=== PATIENT | male | born 1980 | race Hispanic/Latino ===

== ENCOUNTER 2017-01-06 10:02 | Emergency (ER) | payer MEDICAID ==
[2017-01-06] MEDS ORDERED: Sodium Chloride 0.9% 1,000 ML IV STA (11:18)
[2017-01-06] MEDS ORDERED: Sodium Chloride 0.9% 1,000 ML ONE (11:31)
[2017-01-06 11:36] LABS: BASO % 0.5 % (0.0-2.0); EOS # 0.2 K/uL (0.0-0.7); EOS % 3.7 % (0.0-4.0); HEMATOCRIT 43.5 % (35.0-51.0); LYMPH # 1.7 K/uL (1.0-4.3); LYMPH % 28.3 % (20.0-40.0); MEAN CELL VOLUME 92.4 fL (80.0-94.0); MEAN CORPUSCULAR HEMOGLOBIN 31.4 pg (27.0-31.0); MEAN PLATELET VOLUME 7.8 fL (7.2-11.7); MONO # 0.4 K/uL (0.0-0.8); MONO % 6.6 % (0.0-10.0); RED CELL DISTRIBUTION WIDTH 12.4 % (11.5-14.5); WHITE BLOOD COUNT 6.1 K/uL (4.8-10.8)
--- NOTE | 2017-01-06 11:44 | RAD ---
PROCEDURE: CHEST RADIOGRAPH, 1 VIEW HISTORY: CP COMPARISON: None available. FINDINGS: LUNGS: No acute airspace disease identified bilaterally. PLEURA: No pneumothorax or pleural fluid seen. CARDIOVASCULAR: Normal. OSSEOUS STRUCTURES: No significant abnormalities. VISUALIZED UPPER ABDOMEN: Normal. OTHER FINDINGS: None. IMPRESSION: No interval acute cardiopulmonary disease appreciated.
[2017-01-06 11:49] LABS: ALKALINE PHOSPHATASE 64 U/L (38-126); ALT/SGPT 92 U/L (21-72); AST/SGOT 32 U/L (17-59); BILIRUBIN,TOTAL 0.5 mg/dL (0.2-1.3); BLOOD UREA NITROGEN 22 mg/dL (9-20); CALCIUM 9.2 mg/dl (8.6-10.4); CARBON DIOXIDE 28 mmol/L (22-30); CHLORIDE 99 mmol/L (98-107); GFR AFRICAN-AMERICAN > 60; GLUCOSE,RANDOM 94 mg/dL (75-110); POTASSIUM 4.5 mmol/L (3.6-5.2); SODIUM 137 mmol/L (132-148); TOTAL PROTEIN 8.9 g/dL (6.3-8.3)
[2017-01-06 12:03] LABS: ALB/GLOB RATIO 1.1 (1.0-2.1)
[2017-01-06 12:57] LABS: URINE BILIRUBIN NEGATIVE (NEGATIVE); URINE BLOOD NEGATIVE (NEGATIVE); URINE COLOR Yellow (YELLOW); URINE GLUCOSE (UA) NORMAL (Normal); URINE KETONE NEGATIVE (NEGATIVE); URINE LEUKOCYTE ESTERASE NEG Leu/uL (Negative); URINE PROTEIN NEGATIVE (NEGATIVE); URINE UROBILINOGEN NORMAL mg/dL (0.2-1.0); WBC URINE 1 /hpf (0-5)
[2017-01-06] MEDS ORDERED: Iodixanol 320 mg/ml 150 ml Bottle IV ONE (13:43)
--- NOTE | 2017-01-06 15:57 | CT ---
PROCEDURE: CT Angiography Chest, Abdomen and Pelvis with and without intravenous contrast HISTORY: CP radiating to neck COMPARISON: None. TECHNIQUE: Contiguous axial images of the chest, abdomen and pelvis were obtained in the phase of aortic enhancement. A noncontrast enhanced CT of the chest was also obtained to evaluate for possible intramural thrombus. Coronal and sagittal reformats were generated. IV dose administered: 100 mL Visipaque 320 Radiation dose: Total exam DLP = 1858.93 mGy-cm. This CT exam was performed using one or more of the following dose reduction techniques: Automated exposure control, adjustment of the mA and/or kV according to patient size, and/or use of iterative reconstruction technique. FINDINGS: CT ANGIOGRAPHY OF THE CHEST WITH & WITHOUT CONTRAST: AORTA (CHEST AND ABDOMEN): The thoracic and abdominal aorta are unremarkable, without aneurysm, dissection or rupture. No intramural thrombus identified in the thoracic aorta on the non-contrast ct of the chest. The celiac axis, superior mesenteric artery, inferior mesenteric artery and the renal arteries are widely patent. The pelvic arteries are unremarkable. LUNGS: Clear. No nodule, mass or consolidation. Minimal dependent subsegmental atelectasis in both lower lobes. MEDIASTINUM: Unremarkable. Normal caliber aorta and pulmonary arterial trunk. No aortic dissection. Normal size heart. LYMPH NODES: Unremarkable. PLEURA: Unremarkable. No pneumothorax. No pleural fluid. BONES: Unremarkable. OTHER FINDINGS: None. CT ANGIOGRAPHY OF THE ABDOMEN AND PELVIS WITH CONTRAST: LIVER: Unremarkable. No gross lesion or ductal dilatation. GALLBLADDER AND BILE DUCTS: Unremarkable. PANCREAS: Unremarkable. No gross lesion or ductal dilatation. SPLEEN: Unremarkable. ADRENALS: Unremarkable. No mass. KIDNEYS AND URETERS: Unremarkable. No hydronephrosis. No solid mass. VASCULATURE: Unremarkable. No aortic aneurysm. STOMACH AND BOWEL: Unremarkable. No obstruction. No gross mural thickening. APPENDIX: Normal appendix. PERITONEUM: Unremarkable. No free fluid. No free air. LYMPH NODES: Unremarkable. No enlarged lymph nodes. Bones No acute fracture. OTHER FINDINGS: None. IMPRESSION: No evidence of thoracic or abdominal aortic dissection. No evidence of aortic aneurysm. Unremarkable examination.
[2017-01-06 16:09] VITALS: RESP 18
--- NOTE | 2017-01-06 16:16 | CT ---
PROCEDURE: CT Angiography of the neck with contrast HISTORY: chest pain, radiating to jeramie left neck COMPARISON: None available. TECHNIQUE: Contiguous axial images of the neck were obtained from the level of the skull-base to the superior mediastinum in the arteriographic phase of enhancement. Coronal and sagittal reformats or also generated. IV contrast dose: Visipaque 320, 50 cc. Radiation Dose - DLP: mGy-cm This CT exam was performed using one or more of the following dose reduction techniques: Automated exposure control, adjustment of the mA and/or kV according to patient size, and/or use of iterative reconstruction technique. FINDINGS: The bilateral common, internal and external carotid arteries appear patent. Overall contrast-enhancement somewhat limited due to the performance of this examination in concert with a dissection protocol contrast chest CT and in spite of re-bolusing additional contrast material for this exam. Using the sections containing the visualized common carotid arteries from that study and combining the information with the current neck CT angiogram, no definite dissection is suggested throughout the bilateral common carotid arteries. No significant stenosis appreciated throughout the visualized internal or external carotid arteries in the neck and though there is no likely dissection through either either, evaluation for dissection is limited. Signal evaluation is made regarding the bilateral vertebral arteries which are relatively weekly enhanced. Both appear patent through the junction with the basilar artery. No definite aneurysm or arteriovascular malformation is identified. No definite suspicious bony findings. OTHER FINDINGS: None. IMPRESSION: The visualized bilateral common and internal carotid arteries appear patent as well as the vertebral arteries bilaterally though contrast-enhancement appears at the mid venous phase of enhancement rather than peak arterial enhancement for reasons discussed above. No definite dissection is appreciated throughout the bilateral common carotid arteries and is not felt to be present in the remaining major arteries of the neck though contrast-enhancement limits definitive evaluation. Please see discussion above.
--- NOTE | 2017-01-06 16:29 | C.PDOC ---
History Of Present Illness 36 y/o male presents to ED for evaluation of sharp chest pain that started at 4: 00 this morning. Notes that pain radiates to left side of neck. Pt also reports nausea and 1 episode of vomiting today. Denies shortness of breath, palpitation , diaphoresis, fever, headache, dizziness, or other complaints. Time Seen by Provider: 01/06/17 10:19 Chief Complaint (Nursing): Chest Pain History Per: Patient History/Exam Limitations: no limitations Onset/Duration Of Symptoms: Hrs Current Symptoms Are (Timing): Still Present Quality: "Pain" Associated Symptoms: Nausea. denies: Dyspnea, Diaphoresis, Syncope Modifying Factors: None Exacerbating Factors: None Alleviating Factors: None Recent travel outside of the [place]: No Additional History Per: Patient Past Medical History Reviewed: Historical Data, Nursing Documentation, Vital Signs Vital Signs: Last Vital Signs Temp 97.6 F 01/06/17 16:35 Pulse 65 01/06/17 16:35 Resp 18 01/06/17 16:35 BP 118/88 01/06/17 16:35 Pulse Ox 97 01/06/17 17:37 Family History: States: Unknown Family Hx - Social History Hx Alcohol Use: No Hx Substance Use: Yes - Immunization History Hx Tetanus Toxoid Vaccination: No Hx Influenza Vaccination: No Hx Pneumococcal Vaccination: No Review Of Systems Except As Marked, All Systems Reviewed And Found Negative. Constitutional: Negative for: Fever, Chills, Sweats Cardiovascular: Positive for: Chest Pain. Negative for: Palpitations, Edema, Light Headedness Respiratory: Negative for: Cough, Shortness of Breath Gastrointestinal: Positive for: Nausea, Vomiting. Negative for: Abdominal Pain , Diarrhea Musculoskeletal: Positive for: Neck Pain Physical Exam - Physical Exam Appears: Non-toxic, No Acute Distress Skin: Normal Color, Warm, Dry Head: Atraumatic, Normacephalic Eye(s): bilateral: Normal Inspection Oral Mucosa: Moist Neck: Normal ROM, Supple Chest: Symmetrical, No Tenderness Cardiovascular: Rhythm Regular, No Murmur Respiratory: Normal Breath Sounds, No Rales, No Rhonchi, No Wheezing Gastrointestinal/Abdominal: Soft, No Tenderness Extremity: Normal ROM, No Pedal Edema Neurological/Psych: Oriented x3, Normal Speech ED Course And Treatment - Laboratory Results Result Diagrams: 01/06/17 11:30 01/06/17 11:30 ECG: Interpreted By Me, Viewed By Me ECG Rhythm: Sinus Rhythm ECG Interpretation: No Acute Changes Rate From EC O2 Sat by Pulse Oximetry: 97 Pulse Ox Interpretation: Normal - CT Scan/US Dissection study Other Rad Studies (CT/US): Read By Radiologist, Radiology Report Reviewed CT/US Interpretation: PROCEDURE: CT Angiography Chest, Abdomen and Pelvis with and without intravenous contrast. HISTORY: CP radiating to neck. COMPARISON: None. TECHNIQUE: Contiguous axial images of the chest, abdomen and pelvis were obtained in the phase of aortic enhancement. A noncontrast enhanced CT of the chest was also obtained to evaluate for possible intramural thrombus. Coronal and sagittal reformats were generated. IV dose administered: 100 mL Visipaque 320. Radiation dose: Total exam DLP = 1858.93 mGy-cm. This CT exam was performed using one or more of the following dose reduction techniques: Automated exposure control, adjustment of the mA and/or kV according to patient size, and/or use of iterative reconstruction technique. FINDINGS: CT ANGIOGRAPHY OF THE CHEST WITH & WITHOUT CONTRAST: AORTA (CHEST AND ABDOMEN): The thoracic and abdominal aorta are unremarkable, without aneurysm, dissection or rupture. No intramural thrombus identified in the thoracic aorta on the non- contrast ct of the chest. The celiac axis, superior mesenteric artery, inferior mesenteric artery and the renal arteries are widely patent. The pelvic arteries are unremarkable. LUNGS: Clear. No nodule, mass or consolidation. Minimal dependent subsegmental atelectasis in both lower lobes. MEDIASTINUM: Unremarkable. Normal caliber aorta and pulmonary arterial trunk. No aortic dissection. Normal size heart. LYMPH NODES: Unremarkable. PLEURA: Unremarkable. No pneumothorax. No pleural fluid. BONES: Unremarkable. OTHER FINDINGS: None. CT ANGIOGRAPHY OF THE ABDOMEN AND PELVIS WITH CONTRAST: LIVER : Unremarkable. No gross lesion or ductal dilatation. GALLBLADDER AND BILE DUCTS: Unremarkable. PANCREAS: Unremarkable. No gross lesion or ductal dilatation. SPLEEN: Unremarkable. ADRENALS: Unremarkable. No mass. KIDNEYS AND URETERS: Unremarkable. No hydronephrosis. No solid mass. VASCULATURE: Unremarkable. No aortic aneurysm. STOMACH AND BOWEL: Unremarkable. No obstruction. No gross mural thickening. APPENDIX: Normal appendix. PERITONEUM : Unremarkable. No free fluid. No free air. LYMPH NODES: Unremarkable. No enlarged lymph nodes. Bones. No acute fracture. OTHER FINDINGS: None. IMPRESSION: No evidence of thoracic or abdominal aortic dissection. No evidence of aortic aneurysm. Unremarkable examination. Angiography neck Other Rad Studies (CT/US): Read By Radiologist, Radiology Report Reviewed CT/US Interpretation: PROCEDURE: CT Angiography of the neck with contrast. HISTORY: chest pain, radiating to jeramie left neck. COMPARISON: None available. TECHNIQUE: Contiguous axial images of the neck were obtained from the level of the skull-base to the superior mediastinum in the arteriographic phase of enhancement. Coronal and sagittal reformats or also generated. IV contrast dose : Visipaque 320, 50 cc. Radiation Dose - DLP: mGy-cm. This CT exam was performed using one or more of the following dose reduction techniques: Automated exposure control, adjustment of the mA and/or kV according to patient size, and/or use of iterative reconstruction technique. FINDINGS: The bilateral common, internal and external carotid arteries appear patent. Overall contrast-enhancement somewhat limited due to the performance of this examination in concert with a dissection protocol contrast chest CT and in spite of re-bolusing additional contrast material for this exam. Using the sections containing the visualized common carotid arteries from that study and combining the information with the current neck CT angiogram, no definite dissection is suggested throughout the bilateral common carotid arteries. No significant stenosis appreciated throughout the visualized internal or external carotid arteries in the neck and though there is no likely dissection through either either, evaluation for dissection is limited. Signal evaluation is made regarding the bilateral vertebral arteries which are relatively weekly enhanced. Both appear patent through the junction with the basilar artery. No definite aneurysm or arteriovascular malformation is identified. No definite suspicious bony findings. OTHER FINDINGS: None. IMPRESSION: The visualized bilateral common and internal carotid arteries appear patent as well as the vertebral arteries bilaterally though contrast-enhancement appears at the mid venous phase of enhancement rather than peak arterial enhancement for reasons discussed above. No definite dissection is appreciated throughout the bilateral common carotid arteries and is not felt to be present in the remaining major arteries of the neck though contrast-enhancement limits definitive evaluation. Please see discussion above. Progress Note: Blood work, UA, EKG, CXR ordered and reviewed. D-Dimer found to be elevated. Angiography neck, chest, and dissection study ordered. Pt was given IV fluids, and Toradol. On re-evaluation, patient is resting comfortably, no acute distress. Notes feeling better. Patient is being discharged home, and is instructed to follow up with PMD in 1-2 days for further evaluation. Disposition - Disposition Disposition: HOME/ ROUTINE Disposition Time: 16:27 Condition: STABLE Additional Instructions: Follow up with PMD within 1-2 days. Return to ED if feel worse. 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 - Scribe Statement The provider has reviewed the documentation as recorded by the Scribe Xin Cavazos All medical record entries made by the Mela were at my direction and personally dictated by me. I have reviewed the chart and agree that the record accurately reflects my personal performance of the history, physical exam, medical decision making, and the department course for this patient. I have also personally directed, reviewed, and agree with the discharge instructions and disposition.
[2017-01-06 16:36] VITALS: BP 118/88; PULSE 65; TEMP 97.6
[2017-01-06 17:04] VITALS: O2SAT 97
--- NOTE | 2017-01-09 18:04 | CARD ---
APPROVED REPORT EKG Measurement Heart [id number] DC [id number] <Conclusion> Normal sinus rhythm Normal ECG
== END 2017-01-06 16:37 | disposition home or self-care (01) ==
LOC: C.ER 10:02
DX: R07.89 Other chest pain (principal)
CPT/HCPCS: 70498; 71010; 71275; 74175; 80053; 80324; 80345; 80346; 80349; 80353; 80358; 80361; 81001; 82550; 82553; 83992; 84484; 85025; 85378; 85610; 85730; 96361; 96374; 99285; J1885; J7040; Q9967

== ENCOUNTER 2017-10-04 20:04 | Inpatient (IN) | payer MEDICAID ==
--- NOTE | 2017-10-04 21:18 | C.PDOC ---
History Of Present Illness 37 year old male presents to the emergency department as a pre-screen for detox. Patient is requesting detox from heroin, alcohol, and xanax. He denies any medical complaints at this time. Time Seen by Provider: 10/04/17 21:10 Chief Complaint (Nursing): Substance Abuse History Per: Patient History/Exam Limitations: no limitations Onset/Duration Of Symptoms: Hrs Current Symptoms Are (Timing): Still Present Suicide/Self Injury Attempted (Context): None Modifying Factor(s): Alcohol, Other (heroin, xanax) Associated Symptoms: denies: Suicidal Thoughts, Suicidal Plan Past Medical History Reviewed: Historical Data, Nursing Documentation, Vital Signs Vital Signs: Last Vital Signs Temp 98.5 F 10/04/17 20:17 Pulse 84 10/04/17 20:17 Resp 20 10/04/17 20:17 BP 115/72 10/04/17 20:17 Pulse Ox 100 10/04/17 21:50 - Medical History PMH: No Chronic Diseases Surgical History: No Surg Hx Family History: States: No Known Family Hx - Social History Hx Alcohol Use: Yes Hx Substance Use: Yes - Immunization History Hx Tetanus Toxoid Vaccination: No Hx Influenza Vaccination: No Hx Pneumococcal Vaccination: No Review Of Systems Except As Marked, All Systems Reviewed And Found Negative. Constitutional: Negative for: Fever Psych: Negative for: Suicidal ideation Physical Exam - Physical Exam Additional Physical Exam Comments: Constitutional: No acute distress. Head: Normocephalic. Atraumatic. Eyes: PERRL. ENT: Moist mucous membranes. Neck: Supple. Cardiovascular: Regular rate. Radial pulse 2+ bilaterally. Chest: No tenderness. Respiratory: Clear to auscultation bilaterally. GI: Soft. Nontender. Nondistended. Back: No CVA tenderness. Musculoskeletal: No tenderness or swelling of extremities. Skin: No rash. Neurologic: Alert, no focal deficit. ED Course And Treatment - Laboratory Results Result Diagrams: 10/04/17 21:14 10/04/17 21:14 O2 Sat by Pulse Oximetry: 100 (RA) Pulse Ox Interpretation: Normal Medical Decision Making Medical Decision Making: Plan: Alcohol Serum CMP Drug Screen CBC Urinalysis Disposition - Disposition Disposition: HOSPITALIZED Disposition Time: 21:50 Condition: STABLE Forms: [facility] (Swedish) - Clinical Impression Clinical Impression: Opioid use disorder, severe, dependence, Alcohol use disorder, severe, dependence, Severe benzodiazepine use disorder - Scribe Statement The provider has reviewed the documentation as recorded by the Scribe (Thai Pham) Provider Attestation: All medical record entries made by the Scribe were at my direction and personally dictated by me. I have reviewed the chart and agree that the record accurately reflects my personal performance of the history, physical exam, medical decision making, and the department course for this patient. I have also personally directed, reviewed, and agree with the discharge instructions and disposition.
[2017-10-04 21:20] LABS: BASO % 0.4 % (0.0-2.0); EOS # 0.1 K/uL (0.0-0.7); EOS % 1.8 % (0.0-4.0); HEMOGLOBIN 12.7 g/dL (12.0-18.0); LYMPH # 0.7 K/uL (1.0-4.3); LYMPH % 10.4 % (20.0-40.0); MEAN CELL VOLUME 89.3 fL (80.0-94.0); MEAN CORPUSCULAR HEMOGLOBIN 30.9 pg (27.0-31.0); MEAN CORPUSCULAR HGB CONC 34.6 g/dL (33.0-37.0); MEAN PLATELET VOLUME 7.6 fL (7.2-11.7); MONO # 0.4 K/uL (0.0-0.8); MONO % 5.6 % (0.0-10.0); NEUT # 5.3 K/uL (1.8-7.0); NEUT % 81.8 % (50.0-75.0); NRBC % 0.1 % (0.0-2.0); RBC 4.11 Mil/uL (4.40-5.90); RED CELL DISTRIBUTION WIDTH 12.6 % (11.5-14.5); WHITE BLOOD COUNT 6.5 K/uL (4.8-10.8)
[2017-10-04 21:26] LABS: URINE BILIRUBIN NEGATIVE (NEGATIVE); URINE BLOOD NEGATIVE (NEGATIVE); URINE CALCIUM OXALATE CRYSTALS OCC /hpf (<OCC); URINE CLARITY Hazy (Clear); URINE GLUCOSE (UA) NORMAL (Normal); URINE LEUKOCYTE ESTERASE NEG Leu/uL (Negative); URINE PROTEIN NEGATIVE (NEGATIVE)
[2017-10-04 21:28] LABS: URINE COLOR YELLOW (YELLOW)
[2017-10-04 21:35] LABS: ALB/GLOB RATIO 1.4 (1.0-2.1); ALBUMIN 4.3 g/dL (3.5-5.0); ALT/SGPT 31 U/L (21-72); AST/SGOT 26 U/L (17-59); BLOOD UREA NITROGEN 19 mg/dL (9-20); CALCIUM 9.3 mg/dl (8.6-10.4); GFR NON-AFRICAN AMERICAN > 60
[2017-10-04 21:44] LABS: BARBITURATES, UR NEGATIVE (NEGATIVE); PHENCYCLIDINE, UR NEGATIVE (NEGATIVE)
[2017-10-04 21:46] LABS: BENZODIAZEPINES, UR POSITIVE (NEGATIVE); OPIATES, UR POSITIVE (NEGATIVE)
--- NOTE | 2017-10-04 22:42 | PCM.BM ---
<Danae Jordan - Last Filed: 10/04/17 22:41> Treatment Plan Problems - Problems identified on initial assessmt Potential for benzo withdrawal Date Initiated: 10/04/17 Time Initiated: 22:41 Assessment reference: NA Status: Active Potential for opiate withdrawal Date Initiated: 10/04/17 Time Initiated: 22:42 Assessment reference: NA Status: Active Treatment assets and liabiliti Patient Assests: ADL independent, negotiates basic needs, cognitively intact Patient Liabilities: substance abuse - Milieu Protocol Maintain good personal hygiene: daily Encourage regular showers, daily Remind patient to perform daily oral care, daily Assist patient to perform ADL's Conduct patient checks and document Observation sheet: Q15 minutes Maintain personal safety: every shift Educate patient to report safety concerns to staff, every shift Monitor environment for contraband/sharps Medication safety: Monitor for expected outcome, potential side effects: every shift, Assess barriers to learning: every shift, Assess readiness for medication education: every shift <Jose Ramon Lamar - Last Filed: 10/05/17 12:58> - Diagnosis (1) Alcohol use disorder, severe, dependence Status: Acute Interventions: 10/05/17 12:56 * Assess 7x/week regarding severity of withdrawal * Educate regarding risks, benefits, side effects and alternatives of medications * Use Motivational Interviewing for abstinence * Use CBT for relapse prevention * Medication management for withdrawal symptoms * Encourage medication assisted treatment * (2) Opioid use disorder, severe, dependence Status: Acute Interventions: 10/05/17 12:56 * Assess 7x/week regarding severity of withdrawal * Educate regarding risks, benefits, side effects and alternatives of medications * Use Motivational Interviewing for abstinence * Use CBT for relapse prevention * Medication management for withdrawal symptoms * Encourage medication assisted treatment * (3) Severe benzodiazepine use disorder Status: Acute Interventions: 10/05/17 12:56 * Assess 7x/week regarding severity of withdrawal * Educate regarding risks, benefits, side effects and alternatives of medications * Use Motivational Interviewing for abstinence * Use CBT for relapse prevention * Medication management for withdrawal symptoms * Encourage medication assisted treatment *
[2017-10-05] MEDS ORDERED: Aluminum Hydroxide/Magnesium Hydroxide Susp (30 mL) PO PRN (06:23)
[2017-10-05] MEDS: Multiple Vitamins Tab PO SCH (09:21)
--- NOTE | 2017-10-05 12:41 | PCM.PSYCH ---
Initial Psychiatric Evaluation - Initial Psychiatric Evaluation Type of Admission: Voluntary Legal Status: Capacity Chief Complaint (in patient's own words): "Withdrawing" History of Present Illness and Precipitating Events: Pt is a 37 year old male who is single and has 2 kids. 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 He is presenting for opioid detoxification. He snorts heroin (15-20 bags/day) for 7 years. Pt relapsed 6 months ago. This is not his first detoxification. Pt also consumes 4 sticks/day (8mg) of Xanax for the past 10 years. He may have had seizures, he is not certain. Pt drinks alcohol 4-5 shots of vodka. He denies cocaine, marijuana, or any other drugs. He has significant withdrawal sxs and treatment started already Psych Hx: Unremarkable Family Psych Hx: Unremarkable Med Hx: Denies hepatitis C, unremarkable Current Medications: Active Medications Generic Name Dose Route Start Last Admin Trade Name Freq PRN Reason Stop Dose Admin Al Hydrox/Mg Hydrox/Simethicone 30 ml 10/05/17 06:23 Maalox 30 Ml PO TID PRN Indigestion / Heartburn Chlordiazepoxide 25 mg 10/05/17 08:43 Librium PO Q4H PRN Alcohol Withdrawal Chlordiazepoxide 25 mg 10/05/17 10:00 10/05/17 09:59 Librium PO 10/09/17 09:59 25 mg Q6 STELLA Administration Taper Clonidine HCl 0.1 mg 10/05/17 06:23 Catapres PO Q8 PRN COWS Score More or Equal to 5 Dicyclomine HCl 20 mg 10/05/17 06:25 Bentyl PO Q6 PRN Abdominal Cramps Folic Acid 1 mg 10/05/17 10:00 10/05/17 09:21 Folic Acid PO 1 mg DAILY STELLA Administration Gabapentin 400 mg 10/05/17 10:00 10/05/17 09:21 Neurontin PO 400 mg TID STELLA Administration Hydroxyzine HCl 25 mg 10/04/17 23:44 10/04/17 23:55 Atarax PO 25 mg Q6H PRN Administration Anxiety Ibuprofen 400 mg 10/05/17 06:24 Motrin Tab PO Q6 PRN Pain, moderate (4-7) Loperamide HCl 2 mg 08/30/18 06:23 Imodium PO Q8 PRN Diarrhea Methadone HCl 25 mg 10/05/17 10:00 10/05/17 09:22 Methadone PO 10/11/17 09:59 25 mg Q24H STELLA Administration Taper Multivitamins 1 tab 10/05/17 10:00 10/05/17 09:21 Hexavitamin PO 1 tab DAILY STELLA Administration Ondansetron HCl 4 mg 10/05/17 06:23 Zofran Tab PO Q8 PRN Nausea/Vomiting Thiamine HCl 100 mg 10/05/17 10:00 10/05/17 09:20 Vitamin B1 Tab PO 100 mg DAILY STELLA Administration Trazodone HCl 100 mg 10/05/17 22:00 Desyrel PO HS PRN Insomnia Past Psychiatric History - Past Psychiatric History Previous Treatment History: None Pertinent Medical Hx (Current Medical&Sleep Prob, Allergies): Allergies Allergy/AdvReac Type Severity Reaction Status Date / Time No Known Allergies Allergy Verified 01/06/17 10:15 No Known Home Med 10/04/17 Review of Systems - Neurological Neurological: Tremor - Psychiatric Psychiatric: Abnormal Sleep Pattern, Anhedonia, Anxiety, Change in Appetite, Difficulty Concentrating, Irritability. absent: Hallucinations, Homicidal Ideation, Paranoia, Suicidal Ideation Mental Status Examination - Personal Presentation Personal Presentation: Looks stated age - Affect Affect: Constricted - Motor Activity Motor Activity: Calm - Reliability in Providing Information Reliability in Providing Information: Good - Speech Speech: Organized - Mood Mood: Anxious - Formal Thought Process Formal Thought Process: No Impairment - Cognitive Functions Orientation: Person, Place, Situation, Time Sensorium: Alert Attention/Concentration: Attentive Estimate of Intelligence: Average Judgement: Intact, as evidence by: Insight regarding need for hospitalization Memory: Recent intact, as evidence by: Ability to recall events of the day, Remote intact, as evidenced by: Abilit to recall sig. life events - Risk Risk: Seizure, Withdrawal, Diminished functioning - Strength & Assets Inventory Strength & Assets Inventory: Cooperative - Limitations Limitations: Other DSM 5 DX - DSM 5 DSM 5 Diagnosis: Opioid withdrawal Opioid use disorder, severe Sedative, hypnotic, and anxiolytic use disorder, severe Sedative, hypnotic, and anxiolytic withdrawal Alcohol use d/o - severe - Recommended/Plan of Treatment Treatment Recommendations and Plan of Treatment: Taper with MTD for opioids, Librium for benzos and alcohol Gabapentin for augmentation As needed medications All risks, benefits and alternatives of the meds discussed, and the pt agreed and understood. Attend groups and activities Supportive therapy and psychoeducation [place] for abstinence CBT for relapse prevention Encourage MAT Refer to rehab or IOP, and self-help groups Smoking cessation with [place] Nicotine patch if needed 33 min Projected ELOS: 4-5 days - Smoking Cessation Smoking Cessation Initiated: Yes
[2017-10-06] MEDS: Multiple Vitamins Tab PO SCH (10:33)
--- NOTE | 2017-10-06 11:50 | PCM.PYCHPN ---
Psychiatric Progress Note - Psychiatric Progress Note Patient seen today, length of contact: 16 min Patient Chief Complaint: "Still not well yet" Problems Identified/Issues Discussed: The pt is seen, chart reviewed, case discussed with staff. The pt is compliant with medications and reports no side-effects. Symptoms are improving but needs more time to stabilize. Pt attends groups and activities. Support given, psycho-education provided. After care discussed. Medication Change: Yes (detox changes daily) Medical Record Reviewed: Yes Mental Status Examination - Cognitive Function Orientation: Person, Place, Situation, Time Memory: Intact Attention: WNL Concentration: Poor Association: WNL Fund of Knowledge: WNL - Mood Mood: Anxious - Affect Affect: Constricted - Speech Speech: Appropriate - Formal Thought Process Formal Thought Process: No Impairment - Suicidal Ideation Suicidal Ideation: No - Homicidal Ideation Homicidal Ideation: No Goal/Treatment Plan - Goal/Treatment Plan Need for Continued Stay: Discharge may exacerbated symptoms, Severe functional impairment Progress Toward Problem(s) and Goals/Treatment Plan: Taper with MTD for opioids, Librium for benzos and alcohol Gabapentin for augmentation Seroquel for insomnia As needed medications All risks, benefits and alternatives of the meds discussed, and the pt agreed and understood. Attend groups and activities Supportive therapy and psychoeducation [place] for abstinence CBT for relapse prevention Encourage MAT Refer to rehab or IOP, and self-help groups Smoking cessation with [place] Nicotine patch if needed Estimated Date of D/C: 10/10/17
[2017-10-07] MEDS: Multiple Vitamins Tab PO SCH (10:08)
--- NOTE | 2017-10-07 13:15 | PCM.PYCHPN ---
Psychiatric Progress Note - Psychiatric Progress Note Patient seen today, length of contact: 15 minutes Patient Chief Complaint: I'm feeling little tired. Otherwise I'm feeling better. Problems Identified/Issues Discussed: Patient seen, chart reviewed, case discussed with the staff. Issues related to illness and treatment were discussed with the patient and staff. Reported compliant with treatment with no adverse affects. Tolerating treatment very well. Patient reported that he is feeling tired but otherwise he is feeling better. Patient was calm and cooperative. Patient was awake alert oriented 3 with good eye contact. Mood reported as good, affect appropriate. At the time of evaluation, patient was awake alert oriented 3, had no delusions , no auditory or visual hallucinations. Medical Problems: None reported Diagnostic Results: Reviewed DSM 5 Symptoms Update: Some improvement with the treatment Medication Change: No Medical Record Reviewed: Yes Mental Status Examination - Cognitive Function Orientation: Person, Place, Situation, Time Memory: Intact Attention: WNL Concentration: WNL Association: WNL Fund of Knowledge: WN Decription of patient's judgement and insights: Fair - Mood Mood: Anxious - Affect Affect: Other - Speech Speech: Appropriate - Formal Thought Process Formal Thought Process: No Impairment - Suicidal Ideation Suicidal Ideation: No - Homicidal Ideation Homicidal Ideation: No Goal/Treatment Plan - Goal/Treatment Plan Need for Continued Stay: Remain at risks for inpatient hospitalization, Discharge may exacerbated symptoms, Severe functional impairment Progress Toward Problem(s) and Goals/Treatment Plan: Some improvement with treatment Estimated Date of D/C: 10/10/17 - Smoking Cessation Smoking Cessation Initiated: No
[2017-10-08] MEDS: Multiple Vitamins Tab PO SCH (10:06)
--- NOTE | 2017-10-08 13:26 | PCM.PYCHPN ---
Psychiatric Progress Note - Psychiatric Progress Note Patient seen today, length of contact: 15 minutes Patient Chief Complaint: "Better" Problems Identified/Issues Discussed: The pt is seen, chart reviewed, case discussed with staff. The pt is compliant with medications and reports no side-effects. Symptoms are improving but needs more time to stabilize. Pt attends groups and activities. Support given, psycho-education provided. After care discussed. Medication Change: Yes (detox changes daily) Medical Record Reviewed: Yes Mental Status Examination - Cognitive Function Orientation: Person, Place, Situation, Time Memory: Intact Attention: WNL Concentration: WNL Association: WNL Fund of Knowledge: WNL - Mood Mood: Anxious - Affect Affect: Other - Speech Speech: Appropriate - Formal Thought Process Formal Thought Process: No Impairment - Suicidal Ideation Suicidal Ideation: No - Homicidal Ideation Homicidal Ideation: No Goal/Treatment Plan - Goal/Treatment Plan Need for Continued Stay: Remain at risks for inpatient hospitalization, Discharge may exacerbated symptoms, Severe functional impairment Progress Toward Problem(s) and Goals/Treatment Plan: Taper with MTD for opioids, Librium for benzos and alcohol Gabapentin for augmentation Seroquel for insomnia As needed medications All risks, benefits and alternatives of the meds discussed, and the pt agreed and understood. Attend groups and activities Supportive therapy and psychoeducation [place] for abstinence CBT for relapse prevention Encourage MAT Refer to rehab or IOP, and self-help groups Smoking cessation with [place] Nicotine patch if needed Estimated Date of D/C: 10/10/17
--- NOTE | 2017-10-08 13:59 | RAD ---
Date of service: 10/08/2017 HISTORY: rehab clearance COMPARISON: Comparison chest dated 01/06/2017 TECHNIQUE: Chest PA and lateral FINDINGS: LUNGS: No active pulmonary disease. PLEURA: No significant pleural effusion identified. No pneumothorax apparent. CARDIOVASCULAR: Normal. OSSEOUS STRUCTURES: No significant abnormalities. VISUALIZED UPPER ABDOMEN: Normal. OTHER FINDINGS: None. IMPRESSION: No active disease.
[2017-10-09] MEDS: Multiple Vitamins Tab PO SCH (09:14)
--- NOTE | 2017-10-09 23:29 | PCM.PYCHPN ---
Psychiatric Progress Note - Psychiatric Progress Note Patient seen today, length of contact: 15 minutes Patient Chief Complaint: "Better" Problems Identified/Issues Discussed: The pt is seen, chart reviewed, case discussed with staff. The pt is compliant with medications and reports no side-effects. Symptoms are improving but needs more time to stabilize. Pt attends groups and activities. Support given, psycho-education provided. After care discussed. Medication Change: Yes (detox changes daily) Medical Record Reviewed: Yes Mental Status Examination - Cognitive Function Orientation: Person, Place, Situation, Time Memory: Intact Attention: WNL Concentration: WNL Association: WNL Fund of Knowledge: WNL - Mood Mood: Anxious - Affect Affect: Other - Speech Speech: Appropriate - Formal Thought Process Formal Thought Process: No Impairment - Suicidal Ideation Suicidal Ideation: No - Homicidal Ideation Homicidal Ideation: No Goal/Treatment Plan - Goal/Treatment Plan Need for Continued Stay: Remain at risks for inpatient hospitalization, Discharge may exacerbated symptoms, Severe functional impairment Progress Toward Problem(s) and Goals/Treatment Plan: Taper with MTD for opioids, Librium for benzos and alcohol Gabapentin for augmentation Seroquel for insomnia As needed medications All risks, benefits and alternatives of the meds discussed, and the pt agreed and understood. Attend groups and activities Supportive therapy and psychoeducation [place] for abstinence CBT for relapse prevention Encourage MAT Refer to rehab or IOP, and self-help groups Smoking cessation with [place] Nicotine patch if needed Estimated Date of D/C: 10/10/17
[2017-10-10 06:29] VITALS: TEMP 97.6
--- NOTE | 2017-10-10 08:44 | PCM.PYCHDC ---
Mental Status Examination - Mental Status Examination Orientation: Person Discharge Summary - Discharge Note Consultations:: List each consultation separately and include: 1. Reason for request. 2. Findings. 3. Follow-up Summary of Hospital Course include:: 1. Description of specific treatment plan utilized for patients during their course of treatmen. 2. Summarize the time- course for resolution of acute symptoms and/or regressed behaviors. 3. Describe issues identified and worked on during hospitalization. 4. Describe medication utilized. 5. Describe medical problems identified and treated. 6. Reassessment of suicide risk Summary of Hospital Course: Pt is a 37 year old male who is single and has 2 kids. 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 He is presenting for opioid detoxification. He snorts heroin (15-20 bags/day) for 7 years. Pt relapsed 6 months ago. This is not his first detoxification. Pt also consumes 4 sticks/day (8mg) of Xanax for the past 10 years. He may have had seizures, he is not certain. Pt drinks alcohol 4-5 shots of vodka. He denies cocaine, marijuana, or any other drugs. He has significant withdrawal sxs and treatment started already Psych Hx: Unremarkable Family Psych Hx: Unremarkable Med Hx: Denies hepatitis C, unremarkable He went back and forth b/w IOP and rehab but then decided to go to an IOP b/c he wants to work. He also knows a dr who will provide Vivitrol shot - Diagnosis (1) Alcohol use disorder, severe, dependence Current Visit: Yes Status: Acute (2) Opioid use disorder, severe, dependence Current Visit: Yes Status: Acute (3) Severe benzodiazepine use disorder Current Visit: Yes Status: Acute - Final Diagnosis (DSM 5) Condition upon Discharge: STABLE Disposition: HOME/ ROUTINE Follow-up Treatment Plan: Taper with MTD for opioids, Librium for benzos and alcohol Gabapentin for augmentation Seroquel for insomnia As needed medications All risks, benefits and alternatives of the meds discussed, and the pt agreed and understood. Attend groups and activities Supportive therapy and psychoeducation [place] for abstinence CBT for relapse prevention Encourage MAT Refer to rehab or IOP, and self-help groups Smoking cessation with [place] Nicotine patch if needed Prescriptions/Medication Reconciliation: Gabapentin [Neurontin] 400 mg PO TID #90 cap hydrOXYzine HCl [Atarax] 25 mg PO BID PRN #30 tab PRN Reason: Anxiety QUEtiapine [Seroquel] 100 mg PO HS #30 tab traZODone [Desyrel] 100 mg PO HS PRN #30 tab PRN Reason: Insomnia
[2017-10-10 09:05] VITALS: BP 110/72; PULSE 70; RESP 20; O2SAT 98
[2017-10-10] MEDS: Multiple Vitamins Tab PO SCH (09:24)
== END 2017-10-10 10:20 | disposition home or self-care (01) | DRG 745 ==
LOC: C.ER 20:04 → C.7D 22:18
PROVIDERS: ADMIT Psychiatry & Neurology Psychiatry; ATTEND Psychiatry & Neurology Psychiatry
PROC: HZ2ZZZZ Detoxification Services for Substance Abuse Treatment (ICD-10-PCS; principal; 2017-10-04)
PROC: HZ52ZZZ Individual Psychotherapy for Substance Abuse Treatment, Cognitive-Behavioral (ICD-10-PCS; 2017-10-04)
PROC: HZ59ZZZ Individual Psychotherapy for Substance Abuse Treatment, Supportive (ICD-10-PCS; 2017-10-04)
PROC: HZ56ZZZ Individual Psychotherapy for Substance Abuse Treatment, Psychoeducation (ICD-10-PCS; 2017-10-04)
PROC: HZ42ZZZ Group Counseling for Substance Abuse Treatment, Cognitive-Behavioral (ICD-10-PCS; 2017-10-04)
PROC: HZ46ZZZ Group Counseling for Substance Abuse Treatment, Psychoeducation (ICD-10-PCS; 2017-10-04)
DX: F11.23 Opioid dependence with withdrawal (principal); F13.239 Sedative, hypnotic or anxiolytic dependence with withdrawal, unspecified; F10.230 Alcohol dependence with withdrawal, uncomplicated; Y90.0 Blood alcohol level of less than 20 mg/100 ml; G47.00 Insomnia, unspecified

== ENCOUNTER 2017-10-23 22:59 | Emergency (ER) | payer MEDICAID ==
[2017-10-23] MEDS ORDERED: Sodium Chloride 0.9% 1,000 ML IV ONE (23:39)
[2017-10-23 23:56] LABS: BASO % 0.9 % (0.0-2.0); EOS # 0.1 K/uL (0.0-0.7); EOS % 2.8 % (0.0-4.0); HEMOGLOBIN 12.2 g/dL (12.0-18.0); LYMPH # 1.5 K/uL (1.0-4.3); LYMPH % 28.8 % (20.0-40.0); MEAN CELL VOLUME 89.6 fL (80.0-94.0); MEAN CORPUSCULAR HEMOGLOBIN 31.8 pg (27.0-31.0); MEAN CORPUSCULAR HGB CONC 35.4 g/dL (33.0-37.0); MEAN PLATELET VOLUME 8.1 fL (7.2-11.7); MONO # 0.6 K/uL (0.0-0.8); MONO % 11.7 % (0.0-10.0); NEUT % 55.8 % (50.0-75.0); RBC 3.86 Mil/uL (4.40-5.90); RED CELL DISTRIBUTION WIDTH 12.6 % (11.5-14.5); WHITE BLOOD COUNT 5.3 K/uL (4.8-10.8)
[2017-10-24 00:08] LABS: PROTHROMBIN TIME 11.4 SECONDS (9.7-12.2)
[2017-10-24] MEDS ORDERED: Sodium Chloride 0.9% 1,000 ML ONE (00:16)
[2017-10-24 00:20] LABS: ALB/GLOB RATIO 1.4 (1.0-2.1); ALBUMIN 4.2 g/dL (3.5-5.0); ALT/SGPT 156 U/L (21-72); AST/SGOT 133 U/L (17-59); BLOOD UREA NITROGEN 22 mg/dL (9-20); GFR NON-AFRICAN AMERICAN > 60
--- NOTE | 2017-10-24 00:24 | C.PDOC ---
History Of Present Illness <Arnie Maldonado - Last Filed: 10/24/17 00:59> <Americo Franklin - Last Filed: 10/24/17 02:15> 37 y/o male presents to the ED complaining of pain and swelling to the right hand. Given anabolic steroid injection in the deep tissues at dorsal aspect of his right forearm, approximately 4 days ago. He denies any fever or chills. Has hx of substance abuse. Patient reports taking clonidine for his withdrawal symptoms (Arnie Maldonado) History Per: Patient History/Exam Limitations: no limitations Onset/Duration Of Symptoms: Days Current Symptoms Are (Timing): Still Present <Arnie Maldonado - Last Filed: 10/24/17 00:59> <Americo Franklin - Last Filed: 10/24/17 02:15> Time Seen by Provider: 10/23/17 23:31 Chief Complaint (Nursing): Chest Pain Past Medical History Reviewed: Historical Data, Nursing Documentation, Vital Signs - Medical History PMH: Denies: Diabetes, Hepatitis, HIV, HTN, Chronic Kidney Disease, Seizures, Sexually Transmitted Disease Family History: States: Unknown Family Hx - Social History Hx Alcohol Use: Yes Hx Substance Use: Yes - Immunization History Hx Tetanus Toxoid Vaccination: No Hx Influenza Vaccination: No Hx Pneumococcal Vaccination: No <Arnie Maldonado - Last Filed: 10/24/17 00:59> Vital Signs: Last Vital Signs Temp 98.5 F 10/23/17 23:20 Pulse 72 10/24/17 01:41 Resp 16 10/24/17 01:41 BP 108/62 10/24/17 01:41 Pulse Ox 97 10/24/17 01:41 - [facility] Procedures DETOXIFICATION SERVICES FOR SUBSTANCE ABUSE TREATMENT (10/04/17) GROUP ORNAMENTAL BRONZE WORKER FOR SUBSTANCE ABUSE TREATMENT, PSYCHOEDUCATION (10/04/17) GROUP ORNAMENTAL BRONZE WORKER FOR SUBSTANCE ABUSE, COGNITIVE BEHAVIORAL (10/04/17) INDIV PSYCHOTHERAPY FOR SUBSTANCE ABUSE TREATMENT, SUPPORT (10/04/17) INDIV PSYCHOTHERAPY FOR SUBSTANCE ABUSE, COGNITIV BEHAVIORAL (10/04/17) INDIV PSYCHOTHERAPY FOR SUBSTANCE ABUSE, PSYCHOEDUCATION (10/04/17) Review Of Systems Except As Marked, All Systems Reviewed And Found Negative. Constitutional: Negative for: Fever, Chills Musculoskeletal: Positive for: Hand Pain (right hand) Neurological: Negative for: Weakness, Numbness, Incoordination Psych: Negative for: Suicidal ideation, Withdrawal <Arnie Maldonado - Last Filed: 10/24/17 00:59> Physical Exam - Physical Exam Appears: Non-toxic, No Acute Distress, Other (Anxious appearing) Skin: Warm, Dry Head: Atraumatic, Normacephalic Eye(s): bilateral: PERRL, EOMI, Other (Dilated pupils) Chest: Symmetrical Cardiovascular: Rhythm Regular, No Murmur Respiratory: Normal Breath Sounds, No Accessory Muscle Use Gastrointestinal/Abdominal: Soft, No Tenderness, No Distention Extremity: Normal ROM, Tenderness (to mid right dorsal forearm), Capillary Refill (less than 2 sec), Swelling (edema of the right hand and right lower forearm, no erythema) Pulses: Left Radial: Normal, Right Radial: Normal Neurological/Psych: Oriented x3, Normal Speech <Arnie Maldonado - Last Filed: 10/24/17 00:59> ED Course And Treatment - Laboratory Results Result Diagrams: 10/23/17 23:53 10/23/17 23:53 Lab Interpretation: Normal O2 Sat by Pulse Oximetry: 97 (RA) Pulse Ox Interpretation: Normal Progress Note: ice pack, toradol, tramadol, IVF Reevaluation Time: 00:56 Reassessment Condition: Improved <Arnie Maldonado - Last Filed: 10/24/17 00:59> - Laboratory Results Result Diagrams: 10/23/17 23:53 10/23/17 23:53 <Americo Franklin - Last Filed: 10/24/17 02:15> Medical Decision Making <Arnie Maldonado - Last Filed: 10/24/17 00:59> <Americo Franklin - Last Filed: 10/24/17 02:15> Medical Decision Making: Initial Plan: --Blood work and cultures --UA --EKG --IV fluids --Toradol 30 mg IVP --Tramadol 50 mg PO --CT Right Upper Extremity w/ contrast 0100: signed over to overnight pending CT results (Arnie Maldonado) 1408 CT results reviewed: ?cellulitis on CT No hard compartment n/v intact. No streaking or crepitus noted on exam. Mild erythema. Mildly warm to touch. Mildly tender. No pain or redness over joints, will rx with clinda. No WBC count here. Well appearing w/ good N/V status. Non- septic WBC and vitals on reassessment. Will d/c home with abx. (Americo Franklin) Disposition - Disposition Disposition Time: 01:00 <Arnie Maldonado - Last Filed: 10/24/17 00:59> <Americo Franklin - Last Filed: 10/24/17 02:15> - Disposition Referrals: [facility] [Outside] [facility] [Outside] Disposition: HOME/ ROUTINE Condition: GOOD Additional Instructions: DO NOT INJECT HGH. IF WORSENING REDNESS OR PAIN, DIFFICULTY MOVING ARM/ HAND, OR WORSENING PAIN OR FEVER COME BACK TO ED. DONA JIN, thank you for letting us take care of you today. Your provider was Americo Franklin and you were treated for CHEST PAIN, RT ARM SWELLING. The emergency medical care you received today was directed at your acute symptoms. If you were prescribed any medication, please fill it and take as directed. It may take several days for your symptoms to resolve. Return to the Emergency Department if your symptoms worsen, do not improve, or if you have any other problems. Please contact your doctor or call one of the physicians/clinics you have been referred to that are listed on the Patient Visit Information form that is included in your discharge packet. Bring any paperwork you were given at discharge with you along with any medications you are taking to your follow up visit. Our treatment cannot replace ongoing medical care by a primary care provider outside of the emergency department. Thank you for allowing the [facility] team to be part of your care today. If you had an X-Ray or CT scan: A Radiologist will review the ED reading if any change in treatment is needed we will contact you. If you had a blood, urine, or wound culture: It will take several days for the results, if any change in treatment is needed we will contact you. If you had an STI test: It will take 48 hours for the results. Please call after 1 week if you have not heard back. Prescriptions: Clindamycin [Cleocin] 450 mg PO TID 5 Days #42 cap Instructions: Cellulitis and Erysipelas (Skin Infections), Cellulitis (Skin Infection), Adult (DC) Forms: [employer] ([place]) - Clinical Impression Clinical Impression: Hand edema, Cellulitis - Scribe Statement The provider has reviewed the documentation as recorded by the Scribe (Hollie Sanchez) <Arnie Maldonado - Last Filed: 10/24/17 00:59> <Americo Franklin - Last Filed: 10/24/17 02:15> - Scribe Statement Provider Attestation: All medical record entries made by the Scribe were at my direction and personally dictated by me. I have reviewed the chart and agree that the record accurately reflects my personal performance of the history, physical exam, medical decision making, and the department course for this patient. I have also personally directed, reviewed, and agree with the discharge instructions and disposition. (Arnie Maldonado) Physician Patient Turnover Patient Signed Over To: Americo Franklin Handoff Comments: follow-up CT results and dispo appropriately. <Arnie Maldonado - Last Filed: 10/24/17 00:59> Addendum <Arnie Maldonado - Last Filed: 10/24/17 00:59> <Americo Franklin - Last Filed: 10/24/17 02:15> Addendum: 10/24/17 01:00 Took over care of patient from Dr. Maldonado. CT RUE results: FINDINGS: A few metallic density foci, apparently representing markers, are present on the skin surface of the mid to distal forearm. Bones/joints: There is no evidence of acute fracture. No dislocation. No suspicious bony lysis or periosteal reaction. Soft tissues: There is soft tissue swelling and reticular increased attenuation within the subcutaneous fat of the distal forearm, wrist, and hand that may suggest cellulitis. No discrete fluid collection is evident on this noncontrasted study. There is no evidence of soft tissue gas. No radiopaque foreign body identified. IMPRESSION: Soft tissue swelling and reticular increased attenuation within the subcutaneous fat of the distal forearm, wrist, and hand that may suggest cellulitis. No discrete fluid collection or foreign body identified. No evidence of acute osseous injury. CT findings discussed with patient. (Americo Franklin)
[2017-10-24] MEDS ORDERED: Iodixanol 320 MG/ML 100 ML BOTTLE IV ONE (00:38)
[2017-10-24 02:29] VITALS: BP 129/75; PULSE 88; RESP 18; TEMP 98.1; O2SAT 99
--- NOTE | 2017-10-24 11:46 | CARD ---
APPROVED REPORT Date of service: 10/23/2017 EKG Measurement Heart [id number] <Conclusion> Normal sinus rhythm Normal ECG
--- NOTE | 2017-10-24 15:26 | CT ---
CT right forearm HISTORY: Swelling. COMPARISON: None available. TECHNIQUE: Multiple contiguous axial images were performed through the right forearm without the use of intravenous contrast. Subsequently, sagittal and coronal reformatted images were obtained. This CT exam was performed using one or more of the following dose reduction techniques: Automated exposure control, adjustment of the mA and/or kV according to patient size, and/or use of iterative reconstruction technique. Findings: A few metallic density foci, apparently representing markers are present on the skin surface of the mid to distal forearm. Soft tissue swelling and reticular increased attenuation within the subcutaneous fat of the distal forearm, wrist, and hand may suggest cellulitis. No evidence of discrete fluid collection or soft tissue gas. Visualized osseous structures appear grossly preserved. Punctate ossific density seen on series 3, image 339 at the posterior aspect of the distal humerus measures 4 millimeters. This is of uncertain clinical etiology and may represent a small osteophyte and or small bony protuberance and or subtle small loose osteochondral body versus additional etiology. Clinical correlation. Correlation with elbow CT or MR may be helpful for further evaluation if clinically indicated. Additional small osteophyte seen at the volar aspect of the triquetrum. Impression: Soft tissue swelling and reticular increased attenuation within the subcutaneous fat of the distal forearm, wrist, and hand may suggest cellulitis. No discrete fluid collection or foreign body identified. Further evaluation with MRI may be helpful if clinically indicated. No evidence of acute osseous injury. Punctate ossific density seen on series 3, image 339 at the posterior aspect of the distal humerus measures 4 millimeters. This is of uncertain clinical etiology and may represent a small osteophyte and or small bony protuberance and or subtle small loose osteochondral body versus additional etiology. Clinical correlation. Correlation with elbow CT or MR may be helpful for further evaluation if clinically indicated. Additional small osteophyte seen at the volar aspect of the triquetrum. These findings were preliminarily reported at 1:28 a.m. on 10/24/[address] Gabe Hagan from [employer].
== END 2017-10-24 02:29 | disposition home or self-care (01) ==
LOC: C.ER 22:59
DX: R60.0 Localized edema (principal); L03.113 Cellulitis of right upper limb
CPT/HCPCS: 73200; 80053; 85025; 85610; 85730; 87040; 93005; 96361; 96374; 99285; J1885; J7030

== ENCOUNTER 2018-05-20 00:37 | Inpatient (IN) | payer MEDICAID ==
--- NOTE | 2018-05-20 00:52 | C.PDOC ---
History Of Present Illness Patient presents to the emergency department with complaints of feeling depressed and having thoughts of hurting himself. Patient states that it is his daughters birthday and that she a few years ago. Patient offers no other complaints at this time. Time Seen by Provider: 05/20/18 00:52 Chief Complaint (Nursing): Psychiatric Evaluation History Per: Patient History/Exam Limitations: no limitations Onset/Duration Of Symptoms: Hrs Current Symptoms Are (Timing): Still Present Suicide/Self Injury Attempted (Context): None Modifying Factor(s): None Associated Symptoms: Suicidal Thoughts. denies: Suicidal Plan Involuntary Hold By: None Recent travel outside of the [place]: No Additional History Per: Patient Past Medical History Vital Signs: Last Vital Signs Temp 98.3 F 05/20/18 00:44 Pulse 106 H 05/20/18 00:44 Resp 18 05/20/18 00:44 BP 116/77 05/20/18 00:44 Pulse Ox 100 05/20/18 00:44 - Medical History PMH: No Chronic Diseases Denies: Diabetes, Hepatitis, HIV, HTN, Chronic Kidney Disease, Seizures, Sexually Transmitted Disease Surgical History: No Surg Hx - [facility] Procedures DETOXIFICATION SERVICES FOR SUBSTANCE ABUSE TREATMENT (10/04/17) GROUP HUMAN SERVICE WORKER FOR SUBSTANCE ABUSE TREATMENT, PSYCHOEDUCATION (10/04/17) GROUP HUMAN SERVICE WORKER FOR SUBSTANCE ABUSE, COGNITIVE BEHAVIORAL (10/04/17) GROUP PSYCHOTHERAPY (12/26/17) INDIV PSYCHOTHERAPY FOR SUBSTANCE ABUSE TREATMENT, SUPPORT (10/04/17) INDIV PSYCHOTHERAPY FOR SUBSTANCE ABUSE, COGNITIV BEHAVIORAL (10/04/17) INDIV PSYCHOTHERAPY FOR SUBSTANCE ABUSE, PSYCHOEDUCATION (10/04/17) INDIVIDUAL PSYCHOTHERAPY, SUPPORTIVE (12/26/17) MEDICATION MANAGEMENT (12/26/17) MEDS MGMT FOR SUBSTANCE ABUSE TREATMENT, OTH REPL MED (12/26/17) Family History: States: No Known Family Hx - Social History Hx Alcohol Use: Yes Hx Substance Use: Yes (herion IV) - Immunization History Hx Tetanus Toxoid Vaccination: No Hx Influenza Vaccination: No Hx Pneumococcal Vaccination: No Review Of Systems Constitutional: Negative for: Fever, Chills Cardiovascular: Negative for: Chest Pain Respiratory: Negative for: Cough, Shortness of Breath Gastrointestinal: Negative for: Nausea, Vomiting, Abdominal Pain, Diarrhea Psych: Positive for: Suicidal ideation Physical Exam - Physical Exam Appears: Non-toxic, No Acute Distress Skin: Warm, Dry Head: Normacephalic Eye(s): bilateral: Normal Inspection Oral Mucosa: Moist Neck: Normal ROM, Supple Chest: Symmetrical, No Tenderness Cardiovascular: Rhythm Regular, No Murmur Respiratory: No Rales, No Rhonchi, No Wheezing Gastrointestinal/Abdominal: Soft, No Tenderness Extremity: Normal ROM Extremity: Bilateral: Atraumatic Neurological/Psych: Oriented x3 Gait: Steady ED Course And Treatment - Laboratory Results Result Diagrams: 05/20/18 01:33 05/20/18 01:33 O2 Sat by Pulse Oximetry: 100 (RA) Pulse Ox Interpretation: Normal - Other Rad forearm X-Ray: Interpreted by Me, Viewed By Me Interpretation: no fo seen, no fx Progress Note: Plan: Chemistry. CBC. AES Crisis Eval. Urinalysis Disposition Discussed With Dr.: Dionicio Junior Comment: accepted the pt on his service and took over the care at 5:15 AM Doctor Will See Patient In The: Hospital Counseled Patient/Family Regarding: Studies Performed, Diagnosis - Disposition Referrals: Non [facility] Provider, [Primary Care Provider] - Disposition: HOSPITALIZED Disposition Time: 00:52 Condition: FAIR Forms: [facility] (Swedish) - POA Present On Arrival: None - Clinical Impression Clinical Impression: Major depression, Opioid use disorder, severe, dependence - Scribe Statement The provider has reviewed the documentation as recorded by the Scribe (Thai Pham) Provider Attestation: All medical record entries made by the Scribe were at my direction and personally dictated by me. I have reviewed the chart and agree that the record accurately reflects my personal performance of the history, physical exam, medical decision making, and the department course for this patient. I have also personally directed, reviewed, and agree with the discharge instructions and disposition. Decision To Admit - Pt Status Changed To: Hospital Disposition Of: Inpatient - Admit Certification Admit to Inpatient:: After my assessment, the patient will require hospitalization for at least two midnights. This is because of the severity of symptoms shown, intensity of services needed, and/or the medical risk in this patient being treated as an outpatient. - InPatient: Physician Admission Certification: I certify that this patient requires 2 or more midnights of care for the following reason:: After my assessment, the patient will require hospitalization for at least two midnights. This is because of the severity of symptoms shown, intensity of services needed, and/or the medical risk in this patient being treated as an outpatient. - . Bed Request Type: Psychiatry Admitting Physician: Dionicio Junior Patient Diagnosis: Major depression, Opioid use disorder, severe, dependence
[2018-05-20 01:47] LABS: URINE BILIRUBIN SMALL (NEGATIVE); URINE CLARITY Clear (Clear); URINE COLOR AMBER (YELLOW); URINE GLUCOSE (UA) NEGATIVE (Normal)
[2018-05-20 01:48] LABS: SQUAMOUS EPITHIAL < 1 /hpf (0-5); URINE BLOOD NEGATIVE (NEGATIVE); URINE LEUKOCYTE ESTERASE NEGATIVE Leu/uL (Negative); URINE PROTEIN NEGATIVE (NEGATIVE); URINE UROBILINOGEN 0.2 mg/dL (0.2-1.0)
[2018-05-20 01:49] LABS: URINE HYALINE CAST 8 /lpf (0-2)
[2018-05-20 01:54] LABS: ALB/GLOB RATIO 1.5 (1.0-2.1); ALBUMIN 4.7 g/dL (3.5-5.0); ALT/SGPT 224 U/L (21-72); AST/SGOT 98 U/L (17-59); BLOOD UREA NITROGEN 15 mg/dL (9-20); CALCIUM 10.3 mg/dl (8.6-10.4); GFR NON-AFRICAN AMERICAN > 60
[2018-05-20 02:03] LABS: BASO % 0.4 % (0.0-2.0); EOS # 0.2 K/uL (0.0-0.7); EOS % 2.9 % (0.0-4.0); HEMOGLOBIN 14.3 g/dL (12.0-18.0); LYMPH # 1.8 K/uL (1.0-4.3); LYMPH % 26.4 % (20.0-40.0); MEAN CELL VOLUME 91.6 fL (80.0-94.0); MEAN CORPUSCULAR HEMOGLOBIN 31.8 pg (27.0-31.0); MEAN CORPUSCULAR HGB CONC 34.7 g/dL (33.0-37.0); MONO # 0.6 K/uL (0.0-0.8); MONO % 8.6 % (0.0-10.0); NEUT # 4.3 K/uL (1.8-7.0); NEUT % 61.7 % (50.0-75.0); NRBC % 0.1 % (0.0-2.0); RBC 4.49 Mil/uL (4.40-5.90); RED CELL DISTRIBUTION WIDTH 12.6 % (11.5-14.5); WHITE BLOOD COUNT 6.9 K/uL (4.8-10.8)
[2018-05-20 02:04] LABS: BARBITURATES, UR NEGATIVE (NEGATIVE); PHENCYCLIDINE, UR NEGATIVE (NEGATIVE)
[2018-05-20 02:34] LABS: BENZODIAZEPINES, UR POSITIVE (NEGATIVE); OPIATES, UR POSITIVE (NEGATIVE)
--- NOTE | 2018-05-20 06:34 | PCM.BM ---
Treatment Plan Problems - Problems identified on initial assessmt Suicidal Ideation Date Initiated: 05/20/18 Time Initiated: 06:20 Assessment reference: NA Status: Monitor Defensive Coping Date Initiated: 05/20/18 Time Initiated: : Assessment reference: NA Status: Active Comment: Heroin use as a coping mechanism Treatment assets and liabiliti Patient Assests: cooperative, ADL independent, negotiates basic needs, cognitively intact Patient Liabilities: substance abuse (Heroin abuse), other (Inability to cope with passing of daughter in car accident.) - Milieu Protocol Maintain good personal hygiene: daily Encourage regular showers, daily Remind patient to perform daily oral care, every shift Assist patient to perform ADL's Conduct patient checks and document Observation sheet: Q15 minutes Maintain personal safety: every shift Educate patient to report safety concerns to staff, every shift Monitor environment for contraband/sharps Medication safety: Monitor for expected outcome, potential side effects: every shift, Assess barriers to learning: every shift, Assess readiness for medication education: every shift
--- NOTE | 2018-05-20 11:16 | RAD ---
Left forearm two views HISTORY: Injury. Comparison: None available. Findings: No evidence for acute displaced fracture or dislocation. Impression: Negative acute. If pain persists, consider MRI.
[2018-05-20] MEDS ORDERED: Aluminum Hydroxide/Magnesium Hydroxide Susp (30 mL) PO PRN (12:14)
--- NOTE | 2018-05-20 12:21 | PCM.PSYCH ---
Initial Psychiatric Evaluation - Initial Psychiatric Evaluation Type of Admission: Voluntary Legal Status: Capacity Chief Complaint (in patient's own words): I am depressed for last 2 weeks. I need help. History of Present Illness and Precipitating Events: Patient is a 38 years old, single, employed, male who was admitted due to worsening of depression and withdrawing from heroin, anxiolytics and Alcohol. Patient reported started feeling depressed for last 3 year after he lost his daughter. According to patient his daughter in an accident.Reported this was that the anniversary of his daughter, he started feeling more depressed, became noncompliant with treatment. Started difficulty sleeping, feeling tired in the morning, decreased appetite and lost about 40 pounds over one month. Started suicidal ideations for last 1 week with plan to overdose. No previous suicidal attempts, no homicidal ideations. Patient denied any psychotic manic or anxiety symptoms. According to patient he was seeing psychiatrist. His last visit to psychiatrist was about 4 months ago.. Opioid: Started three years ago, was using 15 bags daily, both snorting and injection. His last use was yesterday 10 bags. Reported history of abstinence for 6 months before relapse. History of two previous detox but one rehabs. Anxiolytic: He started using Xanax 2 years ago, was taking 4 tablets each of 0.5 mg daily. He was buying Xanax from street. Last used yesterday. Alcohol: Patient started drinking alcohol 20 years ago, increased gradually up to 6 packs daily. Last used 3 days ago. Denies smoking cigarettes. Patient has history of arrests in the past for ball fighting and road rage. He was arrested both times. Patient was born in [place], has associated degree, working. Lives with his mother, has two children 6 and 7 years of age, who live with their mother. His height is 6 feet 4 inches and weight is 270 pounds. Current Medications: Active Medications Generic Name Dose Route Start Last Admin Trade Name Freq PRN Reason Stop Dose Admin Al Hydrox/Mg Hydrox/Simethicone 30 ml 05/20/18 12:14 Maalox 30 Ml PO TID PRN Indigestion / Heartburn Clonidine HCl 0.1 mg 05/20/18 12:14 Catapres PO Q4 PRN COWS Score More or Equal to 5 Dicyclomine HCl 10 mg 04/14/19 12:14 Bentyl PO Q6 PRN Muscle spasm Folic Acid 1 mg 05/20/18 12:30 Folic Acid PO DAILY STELLA Ibuprofen 600 mg 05/20/18 12:14 Motrin Tab PO Q6 PRN Pain, moderate (4-7) Loperamide HCl 2 mg 05/20/18 12:14 Imodium PO Q8 PRN Diarrhea Lorazepam 1 mg 05/20/18 12:16 Ativan PO Q6H PRN Symptoms of alcohol withdrawl Methadone HCl 0 mg 05/21/18 10:00 Methadone PO 05/24/18 09:59 Q24H STELLA Taper Methadone HCl 20 mg 05/20/18 12:30 Methadone PO 05/20/18 12:31 ONCE ONE Multivitamins 1 tab 05/20/18 12:30 Hexavitamin PO DAILY COUNTS INCLUDE 234 BEDS AT THE [facility] Ondansetron HCl 4 mg 05/20/18 12:14 Zofran Tab PO Q8 PRN Nausea/Vomiting Pneumococcal Polyvalent Vaccine 0.5 ml 05/23/18 10:00 Pneumovax 23 Vaccine IM 05/23/18 10:01 .ONCE ONE Quetiapine Fumarate 100 mg 05/20/18 22:00 Seroquel PO HS COUNTS INCLUDE 234 BEDS AT THE [facility] Sertraline HCl 100 mg 05/20/18 12:15 Zoloft PO DAILY COUNTS INCLUDE 234 BEDS AT THE [facility] Thiamine HCl 100 mg 05/20/18 12:30 Vitamin B1 Tab PO DAILY COUNTS INCLUDE 234 BEDS AT THE [facility] Past Psychiatric History - Past Psychiatric History Previous Treatment History: Inpatient History of Abuse: None reported History of ETOH/Drug Use: See HPI History of Family Illness: None reported Pertinent Medical Hx (Current Medical&Sleep Prob, Allergies): Allergies Allergy/AdvReac Type Severity Reaction Status Date / Time No Known Allergies Allergy Verified 05/20/18 00:43 QUEtiapine [SEROquel] 50 mg PO HS 10/23/17 cloNIDine [clonidine HCl] 0.1 mg PO DAILY 10/23/17 Gabapentin [Neurontin] 400 mg PO TID #90 cap 01/01/18 QUEtiapine [SEROquel] 100 mg PO HS #30 tab 01/01/18 Sertraline [Zoloft] 100 mg PO DAILY #30 tab 01/01/18 Review of Systems - Psychiatric Psychiatric: As Per HPI, Depression, Suicidal Ideation Mental Status Examination - Personal Presentation Personal Presentation: Looks stated age - Affect Affect: Depressed - Reliability in Providing Information Reliability in Providing Information: Fair - Speech Speech: Organized - Mood Mood: Depressed - Formal Thought Process Formal Thought Process: No Impairment - Hallucinations/Delusions Hallucinations: Other (None reported at the time of evaluation) Delusions: Other - Obsessions/Compulsions Obsessions: None Compulsions: None - Cognitive Functions Orientation: Person, Place, Situation, Time Sensorium: Alert Attention/Concentration: Attentive Abstract Thinking: [place] Estimate of Intelligence: Average Judgement: Intact, as evidence by: Insight regarding need for hospitalization Memory: Recent intact, as evidence by: Ability to recall events of the day, Remote intact, as evidenced by: Ability to recall historical events - Risk Risk: Withdrawal, Diminished functioning - Strength & Assets Inventory Strength & Assets Inventory: Employment status, Cooperative - Limitations Limitations: Other (Lives with mother) DSM 5 DX - DSM 5 DSM 5 Diagnosis: Major depressive disorder recurrent severe without psychotic features. Opioid withdrawal. Opioid use disorder severe. Anxiolytic use disorder severe. Alcohol withdrawal. Alcohol use disorder severe - Recommended/Plan of Treatment Treatment Recommendations and Plan of Treatment: Patient education. Supportive therapy. CBT for relapse prevention. [place] for abstinence. We will start methadone taper for opioid withdrawal symptoms. Librium for alcohol and anxiolytic withdrawals symptoms. Other PRN medications. His medication for depression. Patient wants to go to inpatient rehab for follow-up care after discharge from the hospital. Projected ELOS: 8-10 days Discharge Plan and Discharge Criteria: No or minimal withdrawal symptoms. Stable mood - Smoking Cessation Smoking Cessation Initiated: No Reason for not providing: Patient does not smoke cigarettes.
[2018-05-20] MEDS: Multiple Vitamins Tab PO SCH (13:03)
[2018-05-21 06:25] VITALS: O2SAT 95
[2018-05-21] MEDS: Multiple Vitamins Tab PO SCH (09:41)
--- NOTE | 2018-05-21 21:03 | PCM.PYCHPN ---
Psychiatric Progress Note - Psychiatric Progress Note Patient seen today, length of contact: 15 minutes Patient Chief Complaint: I am not feeling much better. Problems Identified/Issues Discussed: Patient seen, chart reviewed, case discussed with the staff. Issues related to illness and treatment were discussed with the patient and staff. Reported compliant with treatment with no adverse effects. Tolerating treatment very well. Patient reported still not feeling well. Still feeling depressed. Also has withdrawal symptoms including shaking, nervousness, sweating, body aches, nausea and abdominal cramps. Supportive therapy provided. Patient needs more time for stabilization. Aftercare discussed with the patient. Denied any delusions, auditory or visual hallucinations, no suicidal ideations or homicidal ideations at the time of evaluation. Medical Problems: None reported Diagnostic Results: Reviewed Medication Change: No Medical Record Reviewed: Yes Mental Status Examination - Cognitive Function Orientation: Person, Place, Situation, Time Memory: Intact Attention: WNL Concentration: WNL Association: [facility] Fund of Knowledge: [facility] Decription of patient's judgement and insights: Fair - Mood Mood: Depressed - Affect Affect: Depressed - Speech Speech: Appropriate - Formal Thought Process Formal Thought Process: No Impairment Psychotic Thoughts and Behaviors: None - Suicidal Ideation Suicidal Ideation: No - Homicidal Ideation Homicidal Ideation: No Goal/Treatment Plan - Goal/Treatment Plan Need for Continued Stay: Remain at risks for inpatient hospitalization, Discharge may exacerbated symptoms, Severe functional impairment Progress Toward Problem(s) and Goals/Treatment Plan: Patient education. Supportive therapy. CBT for relapse prevention. [place] for abstinence. Continue treatment as before. Estimated Date of D/C: 05/28/18 - Smoking Cessation Smoking Cessation Initiated: No Reason for not providing: Patient does not smoke cigarettes.
[2018-05-22] MEDS: Multiple Vitamins Tab PO SCH (09:16)
--- NOTE | 2018-05-22 15:10 | PCM.PYCHPN ---
Psychiatric Progress Note - Psychiatric Progress Note Patient seen today, length of contact: 15 minutes Patient Chief Complaint: I am feeling little better. I cannot sleep at night. Problems Identified/Issues Discussed: Patient seen, chart reviewed, case discussed with the staff. Issues related to illness and treatment were discussed with the patient and staff. Reported compliant with treatment with no adverse effects. Tolerating treatment very well. Patient reported still not feeling well. Still feeling depressed. Also has withdrawal symptoms including shaking, nervousness, sweating, body aches, nausea and abdominal cramps. Patient reported that his sleep is also not good as he cannot sleep at night. He sleeps during the day. Sleep hygiene discussed with the patient. Supportive therapy provided. Patient needs more time for stabilization. Aftercare discussed with the patient. Denied any delusions, auditory or visual hallucinations, no suicidal ideations or homicidal ideations at the time of evaluation. Medical Problems: None reported Diagnostic Results: Reviewed Medication Change: No Medical Record Reviewed: Yes Mental Status Examination - Cognitive Function Orientation: Person, Place, Situation, Time Memory: Intact Attention: WNL Concentration: WNL Association: [facility]N Fund of Knowledge: [facility] Decription of patient's judgement and insights: Fair - Mood Mood: Depressed - Affect Affect: Depressed - Speech Speech: Appropriate - Formal Thought Process Formal Thought Process: No Impairment Psychotic Thoughts and Behaviors: None - Suicidal Ideation Suicidal Ideation: No - Homicidal Ideation Homicidal Ideation: No Goal/Treatment Plan - Goal/Treatment Plan Need for Continued Stay: Remain at risks for inpatient hospitalization, Discharge may exacerbated symptoms, Severe functional impairment Progress Toward Problem(s) and Goals/Treatment Plan: Patient education. Supportive therapy. CBT for relapse prevention. [place] for abstinence. Continue treatment as before. Estimated Date of D/C: 05/28/18 - Smoking Cessation Smoking Cessation Initiated: No
[2018-05-23] MEDS: Multiple Vitamins Tab PO SCH (09:19)
[2018-05-23] MEDS ORDERED: Pneumococcal 23-Valent Vaccine IM ONE (10:00)
--- NOTE | 2018-05-23 16:25 | PCM.PYCHPN ---
Psychiatric Progress Note - Psychiatric Progress Note Patient seen today, length of contact: 15 minutes Patient Chief Complaint: I am feeling little better. Problems Identified/Issues Discussed: Patient seen, chart reviewed, case discussed with the staff. Issues related to illness and treatment were discussed with the patient and staff. Reported compliant with treatment with no adverse effects. Tolerating treatment very well. Patient reported feeling little better. His sleep is also better and with that he feels little stable. Also has withdrawal symptoms including shaking, nervousness, sweating, body aches, nausea and abdominal cramps but they are also less than before. Mood reported as okay. Affect appropriate. Supportive therapy provided. Patient needs more time for stabilization. Aftercare discussed with the patient. Denied any delusions, auditory or visual hallucinations, no suicidal ideations or homicidal ideations at the time of evaluation. Medical Problems: None reported Diagnostic Results: Reviewed DSM 5 Symptoms Update: Some improvement with treatment. Medication Change: No Medical Record Reviewed: Yes Mental Status Examination - Cognitive Function Orientation: Person, Place, Situation, Time Memory: Intact Attention: WNL Concentration: WNL Association: [facility]N Fund of Knowledge: [facility] Decription of patient's judgement and insights: Fair - Mood Mood: Anxious - Affect Affect: Other (Appropriate) - Speech Speech: Appropriate - Formal Thought Process Formal Thought Process: No Impairment Psychotic Thoughts and Behaviors: None - Suicidal Ideation Suicidal Ideation: No - Homicidal Ideation Homicidal Ideation: No Goal/Treatment Plan - Goal/Treatment Plan Need for Continued Stay: Remain at risks for inpatient hospitalization, Discharge may exacerbated symptoms, Severe functional impairment Progress Toward Problem(s) and Goals/Treatment Plan: Patient education. Supportive therapy. CBT for relapse prevention. [place] for abstinence. Continue treatment as before. Estimated Date of D/C: 05/28/18 - Smoking Cessation Smoking Cessation Initiated: No
[2018-05-24 06:49] VITALS: RESP 18
[2018-05-24] MEDS: Multiple Vitamins Tab PO SCH (09:42)
--- NOTE | 2018-05-24 17:03 | PCM.PYCHPN ---
Psychiatric Progress Note - Psychiatric Progress Note Patient seen today, length of contact: 15 minutes Patient Chief Complaint: I am feeling much better. I slept last night, so I am feeling much better. Problems Identified/Issues Discussed: Patient seen, chart reviewed, case discussed with the staff. Issues related to illness and treatment were discussed with the patient and staff. Reported compliant with treatment with no adverse effects. Tolerating treatment very well. Patient reported feeling much better. Patient also reported that he slept last night. Mood reported as okay. Affect appropriate. Supportive therapy provided. Patient needs more time for stabilization. Aftercare discussed with the patient. Denied any delusions, auditory or visual hallucinations, no suicidal ideations or homicidal ideations at the time of evaluation. Medical Problems: None reported Diagnostic Results: Reviewed DSM 5 Symptoms Update: Improving with treatment Medication Change: No Medical Record Reviewed: Yes Mental Status Examination - Cognitive Function Orientation: Person, Place, Situation, Time Memory: Intact Attention: WNL Concentration: WNL Association: [facility]N Fund of Knowledge: [facility] Decription of patient's judgement and insights: Fair - Mood Mood: Anxious - Affect Affect: Other (Appropriate) - Speech Speech: Appropriate - Formal Thought Process Formal Thought Process: No Impairment Psychotic Thoughts and Behaviors: None - Suicidal Ideation Suicidal Ideation: No - Homicidal Ideation Homicidal Ideation: No Goal/Treatment Plan - Goal/Treatment Plan Need for Continued Stay: Remain at risks for inpatient hospitalization, Discharge may exacerbated symptoms, Severe functional impairment Progress Toward Problem(s) and Goals/Treatment Plan: Patient education. Supportive therapy. CBT for relapse prevention. [place] for abstinence. Continue treatment as before. Patient wants to go to [facility] for follow-up care after discharge from the hospital. Estimated Date of D/C: 05/28/18 - Smoking Cessation Smoking Cessation Initiated: No
[2018-05-25 06:56] VITALS: TEMP 98.4
[2018-05-25 08:43] VITALS: BP 115/76; PULSE 69
[2018-05-25] MEDS: Multiple Vitamins Tab PO SCH (09:29)
--- NOTE | 2018-05-25 09:56 | PCM.PYCHDC ---
Mental Status Examination - Mental Status Examination Orientation: Person, Place, Situation, Time Memory: Intact Mood: Neutral Affect: Other (Appropriate) Speech: Appropriate Attention: WNL Concentration: WNL Association: WNL Fund of Knowledge: WNL Formal Thought Process: No Impairment Description of patient's judgement and insight: Fair Psychotic Thoughts and Behaviors: None Suicidal Ideation: No Current Homicidal Ideation?: No Discharge Summary - Discharge Note Reason for Hospitalization: Major depressive disorder recurrent severe without psychotic features. Opioid withdrawal. Opioid use disorder severe. Anxiolytic use disorder severe. Alcohol withdrawal. Alcohol use disorder severe Laboratory Data: Reviewed Consultations:: List each consultation separately and include: 1. Reason for request. 2. Findings. 3. Follow-up Summary of Hospital Course include:: 1. Description of specific treatment plan utilized for patients during their course of treatmen. 2. Summarize the time- course for resolution of acute symptoms and/or regressed behaviors. 3. Describe issues identified and worked on during hospitalization. 4. Describe medication utilized. 5. Describe medical problems identified and treated. 6. Reassessment of suicide risk Summary of Hospital Course: Patient is a 38 years old, single, employed, male who was admitted due to worsening of depression and withdrawing from heroin, anxiolytics and Alcohol. Patient reported started feeling depressed for last 3 year after he lost his daughter. According to patient his daughter in an accident.Reported this was that the anniversary of his daughter, he started feeling more depressed, became noncompliant with treatment. Started difficulty sleeping, feeling tired in the morning, decreased appetite and lost about 40 pounds over one month. Started suicidal ideations for last 1 week with plan to overdose. No previous suicidal attempts, no homicidal ideations. Patient denied any psychotic manic or anxiety symptoms. According to patient he was seeing psychiatrist. His last visit to psychiatrist was about 4 months ago.. Opioid: Started three years ago, was using 15 bags daily, both snorting and injection. His last use was yesterday 10 bags. Reported history of abstinence for 6 months before relapse. History of two previous detox but one rehabs. Anxiolytic: He started using Xanax 2 years ago, was taking 4 tablets each of 0.5 mg daily. He was buying Xanax from street. Last used yesterday. Alcohol: Patient started drinking alcohol 20 years ago, increased gradually up to 6 packs daily. Last used 3 days ago. Denies smoking cigarettes. Patient has history of arrests in the past for ball fighting and road rage. He was arrested both times. Patient was born in [place], has associated degree, working. Lives with his mother, has two children 6 and 7 years of age, who live with their mother. His height is 6 feet 4 inches and weight is 270 pounds. During his stay in the hospital patient was treated with methadone taper for opiate withdrawal symptoms. He was also started on Ativan as needed. Patient was started on sertraline and Seroquel for his depression. Other as needed medications. Most of the time patient was isolative in his room. With the above treatment patient started feeling better, today patient was stable and has no withdrawal symptoms. Patient was ready for discharge from the hospital. At the time of evaluation and discharge, patient was stable, had no withdrawal symptoms, mood was stable. Patient had no delusions, no auditory or visual hallucinations, no suicidal ideations or homicidal ideations at the time of evaluation and discharge. Patient was discharged in a stable condition. - Final Diagnosis (DSM 5) Condition upon Discharge: FAIR Disposition: HOME/ ROUTINE Follow-up Treatment Plan: [facility] discharge from the hospital. Prescriptions/Medication Reconciliation: QUEtiapine [Seroquel] 100 mg PO HS #30 tab Sertraline [Zoloft] 100 mg PO DAILY #30 tab - Smoking Cessation Smoking Cessation Medication prescribed: No - Antipsychotic Medications Pt discharged on 2 or more routine antipsychotic medications: No
== END 2018-05-25 10:10 | disposition home or self-care (01) | DRG 430 ==
LOC: SUPCPDRO 00:37 → C.ER 00:37 → C.5E 05:14
PROC: GZHZZZZ Group Psychotherapy (ICD-10-PCS; principal; 2018-05-20)
PROC: HZ2ZZZZ Detoxification Services for Substance Abuse Treatment (ICD-10-PCS; 2018-05-20)
PROC: HZ52ZZZ Individual Psychotherapy for Substance Abuse Treatment, Cognitive-Behavioral (ICD-10-PCS; 2018-05-20)
PROC: HZ59ZZZ Individual Psychotherapy for Substance Abuse Treatment, Supportive (ICD-10-PCS; 2018-05-20)
PROC: HZ56ZZZ Individual Psychotherapy for Substance Abuse Treatment, Psychoeducation (ICD-10-PCS; 2018-05-20)
PROC: HZ42ZZZ Group Counseling for Substance Abuse Treatment, Cognitive-Behavioral (ICD-10-PCS; 2018-05-20)
PROC: HZ46ZZZ Group Counseling for Substance Abuse Treatment, Psychoeducation (ICD-10-PCS; 2018-05-20)
PROC: GZ58ZZZ Individual Psychotherapy, Cognitive-Behavioral (ICD-10-PCS; 2018-05-20)
PROC: GZ56ZZZ Individual Psychotherapy, Supportive (ICD-10-PCS; 2018-05-20)
DX: F33.2 Major depressive disorder, recurrent severe without psychotic features (principal); F11.23 Opioid dependence with withdrawal; F13.20 Sedative, hypnotic or anxiolytic dependence, uncomplicated; F10.230 Alcohol dependence with withdrawal, uncomplicated; Y90.0 Blood alcohol level of less than 20 mg/100 ml; R45.851 Suicidal ideations